=== PATIENT | female | born 1995 | race Caucasian/White ===

== ENCOUNTER 2020-09-21 07:18 | Emergency (ER) | payer OTHER ==
[~2020-09-21] VITALS: Ht 160 cm; Wt 68.0 kg
[2020-09-21] MEDS ORDERED: IV NORMAL SALINE 1000 ML BAG IV ONE (07:45)
[2020-09-21] MEDS ORDERED: MINERAL OIL FLEET ENEMA 133 ML BOTTLE RC ONE ×2 (07:45→07:47)
[2020-09-21 07:49] LABS: HEMATOCRIT 35.4 % (31.2-41.9); MEAN CORPUSCULAR HEMOGLOBIN 27.3 uug (24.7-32.8); MEAN CORPUSCULAR VOLUME 82.3 fL (75.5-95.3); PLATELET COUNT (AUTO) 302 K/uL (179-408)
[2020-09-21 08:01] LABS: ALANINE AMINOTRANSFERASE 21 U/L (14-59); ALKALINE PHOSPHATASE 66 U/L (50-136); ASPARTATE AMINOTRANSFERASE 16 U/L (15-37); BILIRUBIN,DIRECT 0.2 mg/dL (0.0-0.2); BILIRUBIN,TOTAL 0.6 mg/dL (0.2-1.0); CARBON DIOXIDE 31 mmol/L (21-32); CHLORIDE 104 mmol/L (98-107); CREATININE 0.8 mg/dL (0.6-1.3); GLUCOSE 90 mg/dL (74-106); LIPASE 76 U/L (73-393); POTASSIUM 3.8 mmol/L (3.5-5.1); TOTAL PROTEIN, SERUM 7.5 g/dL (6.4-8.2); UREA NITROGEN, BLOOD 13 mg/dL (7-18)
--- NOTE | 2020-09-21 08:42 | NUR ---
Patient is in the bathroom@this time.
--- NOTE | 2020-09-21 08:57 | NUR ---
WAITING ON TEST RESULTS, WHICH WERE JUST GIVEN TO US BY ER NURSE. BEN ON HIS WAY NOW TO [facility]
--- NOTE | 2020-09-21 09:10 | NUR ---
PATIENT IN RESTROOM. TECH WILL COME BACK TO [facility]
[2020-09-21 09:24] LABS: *BILIRUBIN,URIN NEGATIVE (NEGATIVE); *BLOOD, URINE NEGATIVE (NEGATIVE); *CLARITY,URINE SLIGHTLY CLOUDY (CLEAR); *COLOR,URINE YELLOW (YELLOW); *KETONES,URINE 3+ (NEGATIVE); *UROBILINOGEN,URINE 0.2 E.U./dl (NORMAL); LEUKOCYTE ESTERASE ,URINE 1+ (NEGATIVE); NITRITE, URINE NEGATIVE (NEGATIVE); UGLUCOSE NEGATIVE (NEGATIVE)
--- NOTE | 2020-09-21 09:32 | NUR ---
IV removed. Catheter intact and site benign. Pressure and 4x4 gauze applied to site. No bleeding noted. Patient discharged to home in stable condition & brisk steady gait. Written and verbal after care instructions given to patient. Patient verbalized understanding & compliance of instructions. Stressed follow up with primary doctor and GI doctor or return to ER for worsening s/s.
[2020-09-21 18:56] LABS: BACTERIA,URINE FEW /HPF (NONE SEEN); MUCUS,URINE MODERATE /LPF (0-FEW); RBC,URINE 0-3 /HPF (0-3); SQUAMOUS EPITHELIAL CELL,UR MODERATE /HPF (NONE SEEN); URINE AMORPHOUS PHOSPHATES FEW /HPF
== END 2020-09-21 09:33 | disposition home or self-care (01) ==
LOC: ER 07:18
DX: K59.00 Constipation, unspecified (principal); R03.0 Elevated blood-pressure reading, without diagnosis of hypertension
CPT/HCPCS: 36415; 83690; 85025; 87086; A4663; J7030

== ENCOUNTER 2021-06-29 12:16 | Emergency (ER) | payer OTHER ==
[~2021-06-29] VITALS: Ht 162.6 cm; Wt 68.0 kg
--- NOTE | 2021-06-29 12:49 | NUR ---
MD@bedside, medical screening exam in progress
[2021-06-29] MEDS ORDERED: MINERAL OIL FLEET ENEMA 133 ML BOTTLE RC ONE ×2 (13:00→13:39)
[2021-06-29 13:14] LABS: *URINE HCG, QUAL NEGATIVE (NEGATIVE)
--- NOTE | 2021-06-29 13:50 | NUR ---
Patient eloped from facility. ER physician notified.
== END 2021-06-29 13:50 | disposition left against medical advice (07) ==
LOC: ER 12:16
DX: K59.00 Constipation, unspecified (principal)
CPT/HCPCS: 84703; A4663